=== PATIENT | male | born 1985 | race Two or more races ===

== ENCOUNTER 2018-09-14 23:45 | Emergency (ER) | payer OTHER ==
[~2018-09-14] VITALS: Ht 175.3 cm; Wt 104.3 kg
[2018-09-15 01:00] VITALS: BP 129/88
[2018-09-15 03:16] LABS: Urine Bacteria NONE SEEN /hpf (None Seen); Urine Blood 2+ /uL (Negative); Urine Mucus FEW (None Seen); Urine WBC 23 /hpf (0 - 3)
[2018-09-15] MEDS ORDERED: CIPROFLOXACIN HCL 500 MG TAB PO ONE ×2 (04:08→04:30)
== END 2018-09-15 03:43 | disposition home or self-care (01) ==
LOC: EEVIPCON 23:47 → ER 23:47
DX: N36.8 Other specified disorders of urethra (principal); N39.0 Urinary tract infection, site not specified
CPT/HCPCS: 81001; 87086; 87088; 87186